=== PATIENT | female | born 1985 | race Caucasian/White ===

== ENCOUNTER 2020-03-07 14:29 | Emergency (ER) | payer OTHER ==
[~2020-03-07] VITALS: Ht 175.3 cm; Wt 70.0 kg
[~2020-03-07 14:29] MED LIST: LOVENOX 3030 MG/0.3 SQ; MOTRIN 600600 MG/TAB PO; PRENATAL1 TA1 PO
[2020-03-07 14:38] VITALS: BP 115/71; TEMP 98.3
[2020-03-07] MEDS ORDERED: CEPHALEXIN500 M1 PO (15:51)
[2020-03-07 16:09] VITALS: PULSE 53
== END 2020-03-07 16:10 | disposition home or self-care (01) ==
LOC: COL.ER 14:29
DX: S71.111A Laceration without foreign body, right thigh, initial encounter (principal); Z23 Encounter for immunization; W45.0XXA Nail entering through skin, initial encounter; Y92.009 Unspecified place in unspecified non-institutional (private) residence as the place of occurrence of the external cause